=== PATIENT | male | born 1965 | race Asian ===

== ENCOUNTER 2023-05-13 02:45 | Emergency (ER) | payer OTHER ==
[~2023-05-13] VITALS: Ht 171.4 cm; Wt 89.0 kg
[2023-05-13 02:47] VITALS: BP 160/90; PULSE 82; RESP 16; TEMP 97.5
[2023-05-13 03:07] LABS: GLUCOMETER DEV NAME(LOC) ER.6; GLUCOSE,POINT OF CARE 248 MG/DL (70-110)
[2023-05-13] MEDS ORDERED: KETOROLAC TROMETHAMINE 30 MG/ML VIAL IM ONE (03:15)
[2023-05-13] MEDS ORDERED: IBUP-1492 PO (03:25)
[2023-05-13] MEDS ORDERED: LIDO700A15 TP (03:25)
[2023-05-13] MEDS ORDERED: ACET-3385 PO (03:25)
== END 2023-05-13 03:59 | disposition home or self-care (01) ==
LOC: EMS 02:45
DX: M54.16 Radiculopathy, lumbar region (principal); E11.9 Type 2 diabetes mellitus without complications; E78.00 Pure hypercholesterolemia, unspecified; Z87.891 Personal history of nicotine dependence
CPT/HCPCS: 99283; 82962; 96372; J1885

== ENCOUNTER 2023-11-10 08:32 | Emergency (ER) | payer OTHER ==
[~2023-11-10] VITALS: Ht 170.2 cm; Wt 72.7 kg
[~2023-11-10 08:32] MED LIST: ACET-3385 PO; IBUP-1492 PO; LIDO700A15 TP
[2023-11-10 08:43] VITALS: TEMP 97.9
[2023-11-10] MEDS ORDERED: GLIP5TAB16 PO (08:43)
[2023-11-10] MEDS ORDERED: EMPA10TA3 PO (08:43)
[2023-11-10] MEDS ORDERED: METF-1211 PO (08:43)
[2023-11-10] MEDS: SODIUM CHLORIDE 0.9% 1,000 ML IV ONE (09:30)
[2023-11-10] MEDS: KETOROLAC TROMETHAMINE 30 MG/ML VIAL IVP ONE (09:31)
[2023-11-10 09:38] LABS: ANION GAP 8 mmol/L (8-16); CALCIUM, TOTAL 8.7 mg/dL (8.8-10.5); CARBON DIOXIDE 30 mmol/L (22-29); CHLORIDE 96 mmol/L (98-107); CREATININE 0.78 mg/dL (0.60-1.30); GLOMERULAR FILTR. RATE CALC > 60 mL/min (>60); GLUCOSE,RANDOM 357 mg/dL (70-110); POTASSIUM 4.1 mmol/L (3.5-5.1); SODIUM SERUM 134 mmol/L (136-145); UREA NITROGEN, BLOOD 14 mg/dL (7-18)
[2023-11-10 11:22] VITALS: BP 142/80; PULSE 85; RESP 16
== END 2023-11-10 11:47 | disposition home or self-care (01) ==
LOC: EMS 08:50
DX: E11.42 Type 2 diabetes mellitus with diabetic polyneuropathy (principal); E11.65 Type 2 diabetes mellitus with hyperglycemia; Z79.4 Long term (current) use of insulin; E78.00 Pure hypercholesterolemia, unspecified; Z87.891 Personal history of nicotine dependence
CPT/HCPCS: 99283; 96374; 96361; 80048; 82962; 36415; J1885; J7030

== ENCOUNTER 2023-11-15 21:28 | Emergency (ER) | payer OTHER ==
[~2023-11-15] VITALS: Ht 170.2 cm; Wt 83.6 kg
[~2023-11-15 21:28] MED LIST changes: +EMPA10TA3 PO; +GLIP5TAB16 PO; +METF-1211 PO
[2023-11-15 22:29] VITALS: BP 135/85; PULSE 95; RESP 18; TEMP 98.1
[2023-11-16] MEDS: OxyCODONE HCL 5 MG IR TABLET PO ONE (01:24)
[2023-11-16] MEDS: KETOROLAC TROMETHAMINE 30 MG/ML VIAL IM ONE (01:24)
== END 2023-11-16 01:30 | disposition home or self-care (01) ==
LOC: EMS 21:37
DX: G89.29 Other chronic pain (principal); M54.50 Low back pain, unspecified; E11.9 Type 2 diabetes mellitus without complications; E78.00 Pure hypercholesterolemia, unspecified; Z87.891 Personal history of nicotine dependence
CPT/HCPCS: 99283; 96372; J1885

== ENCOUNTER 2023-12-13 23:51 | Emergency (ER) | payer OTHER ==
[~2023-12-13] VITALS: Ht 170.2 cm; Wt 77.3 kg
[2023-12-13 23:54] VITALS: TEMP 98
[2023-12-14] MEDS ORDERED: TAMS0.4C94 PO (00:01)
[2023-12-14] MEDS ORDERED: OXYC5TAB3 PO (00:01)
[2023-12-14] MEDS ORDERED: METH4TAB3 PO (00:50)
[2023-12-14] MEDS: DEXAMETHASONE SOD PHOS 4 MG/ML 5 ML VIAL IM ONE (00:55)
[2023-12-14] MEDS: KETOROLAC TROMETHAMINE 30 MG/ML VIAL IM ONE (00:56)
[2023-12-14 01:00] VITALS: BP 154/85; PULSE 94; RESP 16
== END 2023-12-14 01:27 | disposition home or self-care (01) ==
LOC: EMS 12-14 00:01
DX: G89.29 Other chronic pain (principal); M54.50 Low back pain, unspecified; E11.9 Type 2 diabetes mellitus without complications; E78.00 Pure hypercholesterolemia, unspecified; Z87.891 Personal history of nicotine dependence
CPT/HCPCS: 99284; 96372; J1100; J1885